=== PATIENT | female | born 1970 | race Two or more races ===

== ENCOUNTER 2025-06-22 10:25 | Emergency (ER) | payer BC, SELFPAY ==
[2025-06-22 10:26] VITALS: BMI 28.3
[2025-06-22 10:38] VITALS: BP 120/74; PULSE 75; RESP 19; TEMP 37.1; O2SAT 96
--- NOTE | 2025-06-22 10:45 | XR_ITS ---
Examination: Shoulder, right, 3 views Technique: Shoulder AP internal rotation, AP external rotation, Y view shoulder, 3 views Exam date and time : June 22, 2025: 1052 hours INDICATIONS: Injury of the shoulder today, shoulder pain. FINDINGS: Anterior subcoracoid shoulder dislocation. No fracture Clavicle intact IMPRESSION: Anterior subcoracoid shoulder dislocation
--- NOTE | 2025-06-22 10:45 | PD.EDFALL ---
ED Fall Injury RME/HPI General Chief Complaint: Fall Stated Complaint: FALL TODAY, 15 STAIRS RIGHT SHOULDER PAIN, HEAD PA Time Seen by Provider: 06/22/25 10:44 Arrival date/time: 06/22/25 10:25 RME / HPI RME / HPI Narrative: See MDM for Dr. Kohli's HPI documentation. Related Data Previous Rx's ?Medication ?Instructions ?Recorded docusate sodium 100 mg capsule 100 mg PO BID #40 caps 03/15/22 hydrocodone 5 mg-acetaminophen 325 1 tab PO Q6HR PRN pain (scale 03/15/22 mg tablet score 7-10) #20 tabs acetaminophen 300 mg-codeine 30 mg 2 tab PO Q8H PRN pain #20 tabs 06/22/25 tablet ibuprofen 600 mg tablet 600 mg PO TID PRN fever or pain 06/22/25 #30 tabs Allergies Allergy/AdvReac Type Severity Reaction Status Date / Time No Known Allergies Allergy Verified 06/22/25 10:29 Review of Systems Review of Systems Systems Reviewed: All systems reviewed, normal except as documented Past Medical History Past Medical History NEUROLOGIC: Negative Neurological Disorders CARDIAC: Negative Cardiac Disorders GASTROINTESTINAL: Negative Gastrointestinal Disorders MUSCULOSKELETAL: Negative Musculoskeletal Disorders HEMATOLOGIC: Negative Blood Disorders Family History FAMILY HISTORY: Positive Family Cardiac Disorders Surgical History SURGICAL: Positive Tubal Ligation and Section Social History SMOKING STATUS: Never smoker SECOND HAND EXPOSURE: No SUBSTANCE USE: does not use 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 ED Exam Narrative Physical exam: See [facility] for Dr. Kohli's physical exam documentation. Course Quality Measures none Orders Category Date Time Status Miscellaneous Nursing Order NOW Care 06/22/25 11:19 Completed Saline [Insert IV] NOW Care 06/22/25 10:[address] cervical spine wo con Stat Exams 06/22/25 11:[address] chest abdomen pelvis wo Stat Exams 06/22/25 11:[address] head/brain wo con Stat Exams 06/22/25 11:58 Completed XR shoulder RT min 2V Stat Exams 06/22/25 10:45 Completed XR shoulder RT min 2V Stat Exams 06/22/25 11:58 Completed Alcohol, Blood Medical Stat Lab 06/22/25 10:54 Completed Bilirubin,Direct Stat Lab 06/22/25 10:54 Completed CBC Stat Lab 06/22/25 10:54 Completed CK [Creatine Kinase] Stat Lab 06/22/25 10:54 Completed CMP [Comprehensive Metabolic Panel] Stat Lab 06/22/25 10:54 Completed Magnesium Stat Lab 06/22/25 10:54 Completed PT [Prothrombin Time with INR] Stat Lab 06/22/25 10:54 Completed PTT [Partial Thromboplastin Time] Stat Lab 06/22/25 10:54 Completed Ketorolac Inj [Toradol Inj] Med 06/22/25 10:45 Discontinued 30 mg IVP X1 ONE Midazolam Inj [Versed Inj] Med 06/22/25 11:19 Discontinued 6 mg IVP X1 ONE Ondansetron Inj [Zofran Inj] Med 06/22/25 10:45 Discontinued 4 mg IVP X1 ONE Ringers Lactated 1000 ml [Lactated Ringers] 1,000 ml Med 06/22/25 10:45 Discontinued IV 1,000 mls/hr fentaNYL INJ [Sublimaze Inj] Med 06/22/25 11:19 Discontinued 100 mcg IVP X1 ONE Vital Signs Vital signs: Vital Signs Temperature 98.7 F 06/22/25 10:38 Pulse Rate 75 06/22/25 10:38 Respiratory Rate 19 06/22/25 10:38 Blood Pressure 120/74 06/22/25 10:38 Pulse Oximetry (%) 96 06/22/25 10:38 Oxygen Delivery Method Room Air 06/22/25 10:38 Pulse ox is 96% on room air which is adequate. PROCEDURES: Orthopedic Joint Reduction Joint #1: Time Out Performed: Yes Side: Right Joint Reduction Location: shoulder Analgesia: procedural sedation Shoulder Technique Used (if applicable): traction/counter-traction Post-reduction neuro exam: intact Post-reduction vascular: intact Post Reduction X-Ray Obtained: Yes Post Reduction X-Ray Results: reduced Splint Applied: Yes Patient Tolerated Procedure: well and no complications Procedural Sedation Indication: fracture/dislocation reduction ASA: 2 Preparation: ekg monitor tech applied, pulse oximeter, capnometry used and supplemental O2 applied Fentanyl: IV Fentanyl dose (mcg): 99 Midazolam: IV Midazolam dose (mg): 6 Patient Tolerated Procedure: well and no complications Complications: none Additional Comments: Fentanyl 100mcg Fall MDM Narrative MDM Narrative:: This section includes all my notes and documentations, including HPI, PE, and ED course. Ángel Kohli MD HPI: 54-year-old female here with severe right shoulder pain after falling down a flight of stairs just [employer]. Patient reports hitting her head multiple times, no LOC. Son reports he heard the fall and went to her right away. Patient was alert and awake. She was on her right side. ROS: All negative except as documented in HPI. Physical Exam: General:? Alert and oriented.? In severe pain. Eyes:? Conjunctivae and lids clear.? EOMI.? PERRL. ENT:? No signs of head trauma. Neck:? Supple.? No tenderness. Heart:? RRR. Lungs:? No respiratory distress.? Good air movement.? No rhonchi, wheezing, rales.? Chest:? No tenderness. Abdomen:? Soft and nontender.? Normal bowel sounds.? No distension.? No rebound or guarding.? Back:? No tenderness.? Skin:? Warm and dry.? Neuro:? Alert and oriented X 3.? Cranial Nerves II-XII grossly intact.? No peripheral motor deficits. Musculoskeletal: Remarkable for right shoulder tenderness with deformity. All other major joints and bones are not tender with no limited ROM. I reviewed all diagnostic test results: My review of the shoulder x-ray report is anterior dislocation. My review of the shoulder x-ray post reduction report is: Reduced anterior right glenohumeral dislocation. My review of the cervical spine CT report is: No acute cervical fracture. My review of the chest/abdomen/pelvis CT report is: No acute findings. My review of the head CT report is: No acute findings. Blood tests are unremarkable. At this point, diagnoses include: Dislocation of right shoulder joint Treatment here included: Shoulder reduction under moderate sedation (see procedure notes) IVF Toradol 30 mg IV Zofran 4 mg IV Fentanyl 100 mcg IV Versed 6 mg IV Significant improvement after reduction. Recommended more outpatient care. Based on my best medical judgment, made decision no further evaluation or treatment indicated at this time. Patient understands and agrees to the discharge instructions customized and printed, see below. Instrucciones de mavis del Dr. Kohli: 1. Tras edgar evaluaci?n exhaustiva, se confirm? que sufri? edgar luxaci?n del hombro derecho. Logramos recolocar mcfadden hombro derecho con ?xito. No presenta otras lesiones graves, lon traumatismo craneoencef?renard, fractura de osvaldo, fractura de columna vertebral, otras fracturas o lesiones de ?rganos internos. 2. Use el cabestrillo en el brazo derecho hasta que el m?dico que lo atiende le indique lo contrario. Aplique hielo patricia 20 minutos cada 2-3 horas hoy y ma?mally. 3. Silverado ibuprofeno de 600 mg cada 6-8 horas hoy y ma?mally para reducir la inflamaci?n, y luego seg?n sea necesario. Silverado Tylenol con code?na para el dolor intenso. 4. Consulte con un m?dico particular el 2025 para edgar revisi?n. Solicite edgar derivaci?n a un cirujano ortop?dico. Pida ayuda hasta que se recupere por completo. 5. Busque atenci?n m?dica de inmediato si presenta dolor insoportable, si no puede senior loss control specialist los dedos, si los dedos se ponen fr?os y azules, o ante cualquier otra inquietud. Discharge instructions from Dr. Kohli: 1. After extensive evaluation, you dislocated right shoulder. And we successfully put your right shoulder back in place. There is no other very serious injury.? Such as brain injury or broken neck or broken back or other broken bone or internal organ injury. 2. Wear right arm sling until cleared by a doctor taking care of you. Apply ice for 20 minutes every 2-3 hours today and tomorrow. 3. Ibuprofen 600 mg every 6-8 hours today and tomorrow to decrease inflammation then as needed. Tylenol with codeine for severe pain. 4. See a private doctor on 06/24/2025 for recheck. Ask for referral to see orthopedic surgeon. Ask for help until you are completely better. 5. Seek immediate medical care with intolerable pain, if you can't move your fingers, your fingers turn cold and blue, or with any concerns. Ángel Kohli MD Patient data External records reviewed:: [facility] previous records Clinical information provided by:: none Social determinants that could affect healthcare access:: none Patient has the following chronic illnesses:: No chronic medical hx How is presenting disease/condition affected by chronic disease/condition?: no chronic disease Evaluation data The following diagnostics were reviewed and interpreted by me:: lab results and radiology exam(s) Lab and/or radiology exams considered but not ordered:: None Interpretation Summary: I reviewed all diagnostic test results: My review of the shoulder x-ray report is anterior dislocation. My review of the shoulder x-ray post reduction report is: Reduced anterior right glenohumeral dislocation. My review of the cervical spine CT report is: No acute cervical fracture. My review of the chest/abdomen/pelvis CT report is: No acute findings. My review of the head CT report is: No acute findings. Blood tests are unremarkable. Medications / Prescriptions Medications or Prescriptions considered but not ordered:: none Medication administrations:: Medication Administration History Discontinued Medications Fentanyl Citrate (Fentanyl Cit Inj 50 Mcg/Ml Amp 2ml) 100 mcg IVP X1 ONE Stop: 06/22/25 11:20 Last Admin: 06/22/25 11:52 Dose: 100 mcg Documented By: NAM Lactated Ringer's (Lactated Ringers) 1,000 mls @ 1,000 mls/hr IV .Q1H ONE Stop: 06/22/25 11:44 Last Infusion: 06/22/25 12:12 Dose: Infused Documented By: Admin: 06/22/25 10:53 Dose: 1,000 mls/hr Documented By: NEAL Ketorolac Tromethamine (Ketorolac Inj 30 Mg/Ml Vial) 30 mg IVP X1 ONE Stop: 06/22/25 10:46 Last Admin: 06/22/25 10:50 Dose: 30 mg Documented By: NEAL Midazolam HCl (Midazolam Inj 1 Mg/Ml Vial 2 Ml) 6 mg IVP X1 ONE Stop: 06/22/25 11:20 Last Admin: 06/22/25 11:53 Dose: 6 mg Documented By: NAM Ondansetron HCl (Ondansetron Inj 2 Mg/Ml Inj 2 Ml) 4 mg IVP X1 ONE; Protocol Stop: 06/22/25 10:46 Last Admin: 06/22/25 10:50 Dose: 4 mg Documented By: NEAL Treatment here included: Shoulder reduction under moderate sedation (see procedure notes) IVF Toradol 30 mg IV Zofran 4 mg IV Fentanyl 100 mcg IV Versed 6 mg IV Consultations Consultation(s) initiated? (list below): No Diagnosis Fall Differential Diagnosis: syncope, dislocation of shoulder region, compression fracture, concussion with loss of consciousness and concussion without loss of consciousness Most likely diagnosis given after review of the tests above:: At this point, diagnoses include: Dislocation of right shoulder joint Admission Indicated Admission indicated?: not indicated Explain why admission is indicated or not indicated:: With significant improvement and no condition needing emergent intervention, there was no indication for admission. Admission Request Was there a request for admission?: No Disposition Plan Disposition Plan: Discharge Discharge Attestation Discharge Attestation: The patient and all family members were given an opportunity to ask questions and understood the discharge instructions. Discharge instructions specifically effects, indications for sooner follow up or return to the emergency department, and the expected course of current diagnosis. Patient condition: Stable Discharge Plan Plan Patient Disposition: HOME (Self Care) Prescriptions/Referrals Prescriptions/Med Rec: New acetaminophen-codeine 300-30 mg tablet 2 tab PO Q8H MDD 6 PRN (Reason: pain) Qty: 20 0RF ibuprofen 600 mg tablet 600 mg PO TID PRN (Reason: fever or pain) Qty: 30 0RF No Action docusate sodium 100 mg Capsule 100 mg PO BID Qty: 40 0RF hydrocodone-acetaminophen 5-325 mg Tablet 1 tab PO Q6HR MDD 4 PRN (Reason: pain (scale score 7-10)) Qty: 20 0RF Referrals: Jaren Tracy MD [Primary Care Provider, Family Practice] - In 1 week Problem List Clinical Impression: Dislocation of right shoulder joint, Scalp hematoma Patient/Caregiver Discharge Instructions Discharge Activity: activity as tolerated Education Materials: ED Dislocation: Shoulder (Reduced), ED Head Injury (Adult) Additional Instructions: Instrucciones de mavis del Dr. Kohli: 1. Tras edgar evaluaci?n exhaustiva, se confirm? que sufri? edgar luxaci?n del hombro derecho. Logramos recolocar mcfadden hombro derecho con ?xito. No presenta otras lesiones graves, lon traumatismo craneoencef?renard, fractura de osvaldo, fractura de columna vertebral, otras fracturas o lesiones de ?rganos internos. 2. Use el cabestrillo en el brazo derecho hasta que el m?dico que lo atiende le indique lo contrario. Aplique hielo patricia 20 minutos cada 2-3 horas hoy y ma?mally. 3. Silverado ibuprofeno de 600 mg cada 6-8 horas hoy y ma?mally para reducir la inflamaci?n, y luego seg?n sea necesario. Silverado Tylenol con code?na para el dolor intenso. 4. Consulte con un m?dico particular el 2 2025 para edgar revisi?n. Solicite edgar derivaci?n a un cirujano ortop?dico. Pida ayuda hasta que se recupere por completo. 5. Busque atenci?n m?dica de inmediato si presenta dolor insoportable, si no puede senior loss control specialist los dedos, si los dedos se ponen fr?os y azules, o ante cualquier otra inquietud. Discharge instructions from Dr. Kohli: 1. After extensive evaluation, you dislocated right shoulder. And we successfully put your right shoulder back in place. There is no other very serious injury.? Such as brain injury or broken neck or broken back or other broken bone or internal organ injury. 2. Wear right arm sling until cleared by a doctor taking care of you. Apply ice for 20 minutes every 2-3 hours today and tomorrow. 3. Ibuprofen 600 mg every 6-8 hours today and tomorrow to decrease inflammation then as needed. Tylenol with codeine for severe pain. 4. See a private doctor on 06/24/2025 for recheck. Ask for referral to see orthopedic surgeon. Ask for help until you are completely better. 5. Seek immediate medical care with intolerable pain, if you can't move your fingers, your fingers turn cold and blue, or with any concerns. Print Language: Sinhala Stand Alone Forms: [employer] Info., Patient Portal Info Letter
[2025-06-22] MEDS: ONDANSETRON INJ 2 MG/ML INJ 2 ML 4 MG IVP (10:50)
[2025-06-22] MEDS: KETOROLAC INJ 30 MG/ML VIAL IVP (10:50)
[2025-06-22] MEDS: RINGERS LACTATED 1000 ML 1,000 ML IV (10:53)
[2025-06-22 11:25] LABS: Basophils # (Auto) 0.0 Thou/mm3 (0.0-0.2); Basophils % (Auto) 0 % (0-2.5); Eosinophils # (Auto) 0.2 Thou/mm3 (0.0-0.5); Eosinophils % (Auto) 2 % (0-10); Hematocrit 37.9 % (36.0-46.0); Hemoglobin 12.6 g/dL (12.0-16.0); Immature Granulocytes Auto 0.02 Thou/mm3 (0.00-0.00); Lymphocytes # (Auto) 4.1 Thou/mm3 (1.0-4.8); Lymphocytes % (Auto) 45 % (10-50); Mean Corpuscular HGB Conc 33.2 g/dl (31.0-37.0); Mean Corpuscular Hemoglobin 29.2 pg (25.0-35.0); Mean Corpuscular Volume 88 fL (80-100); Monocytes # (Auto) 0.6 Thou/mm3 (0.0-0.8); Monocytes % (Auto) 7 % (0-12); Neutrophils # (Auto) 4.1 Thou/mm3 (1.8-7.7); Neutrophils % (Auto) 46 % (37-80); Nucleated Red Blood Cell # 0.00 Thou/mm3 (0.00-0.00); Nucleated Red Blood Cell % 0 /100 WBC (0); Platelet Count 414 Thou/mm3 (140-440); RDW Standard Deviation 40.7 fL (36.4-46.3); Red Blood Count 4.32 Miln/mm3 (4.00-5.20); White Blood Count 9.1 Thou/mm3 (3.6-11.0)
[2025-06-22 11:49] LABS: INR 1.0 (0.9-1.3); Partial Thromboplastin Time 25.1 Seconds (22.0-36.0); Prothrombin Time 10.4 Seconds (9.0-12.2)
[2025-06-22] MEDS: fentaNYL CIT INJ 50 mCg/ML AMP 2ML 100 MCG IVP (11:52)
[2025-06-22] MEDS: MIDAZOLAM INJ 1 MG/ML VIAL 2 ML 6 MG IVP (11:53)
--- NOTE | 2025-06-22 11:58 | XR_ITS ---
Examination: CT chest, without intravenous contrast. CT abdomen, without intravenous contrast. CT pelvis, without intravenous contrast. 2-D sagittal and coronal reconstructions. 3-D reconstructions. Date and time of exam: June 22, 2025, 1247 hours INDICATIONS: Patient fell today with injury to the chest and abdomen, chest pain abdomen pain CTDI vol (mgy) 16.5 DLP (MGycm) 1248 Technique: Multiple CT images, 3.0 mm slice thickness, obtained chest, abdomen, pelvis, with the high-resolution 64 slice scanner.. Sagittal and coronal 2-D reconstructions are obtained. 3-D reconstructions Low dose protocols were performed. One or more of the following dose reduction techniques were used; automated exposure control, adjustment of the mA and/or KV according to patient size, use of iterative reconstruction technique. Findings: Thoracic aorta pulmonary arteries appear intact on this noncontrast study Mild vascular congestion. No pneumothorax or hemothorax The manubrium and the body the sternum intact No thoracic or lumbar or sacral fracture Ribs intact Collapsed breast implants No liver splenic or renal laceration, no perinephric stranding Tiny fat-containing umbilical hernia Abdominal aorta intact No free blood in the abdomen Negative for pneumoperitoneum No pericecal inflammatory change Urinary bladder intact Bones of the pelvis hips intact IMPRESSION: Thoracic aorta pulmonary arteries intact No pneumothorax or hemothorax No abdominal parenchymal laceration Abdominal aorta intact No free bed in the abdomen or pelvis
--- NOTE | 2025-06-22 11:58 | XR_ITS ---
Study: Right shoulder post reduction. INDICATION: Post reduction image. FINDINGS: An internally rotated image and a scapular Y image demonstrate reduction of the anterior dislocation of the glenohumeral joint. In the absence of an externally rotated study, the entire humerus head cannot be assessed. IMPRESSION: Reduced anterior right glenohumeral dislocation.
--- NOTE | 2025-06-22 11:58 | XR_ITS ---
Examination: CT cervical spine without contrast 2-D sagittal reconstructions 2-D coronal reconstructions 3-D reconstructions. Exam date and time: June 22, 2025, 12:30 p.m. INDICATION: Patient fell today with injury to the neck, neck pain CTDI:vol (mGy) 20.4 DLP: (mGycm) 430 Technique: Multiple 2 mm axial sections of the cervical spine have been obtained. The coronal and sagittal reconstructions have been obtained. 3-D reconstructions have been obtained. Low dose protocols were performed. One or more of the following dose reduction techniques were used; automated exposure control, adjustment of the mA and/or KV according to patient size, use of iterative reconstruction technique. Findings: Axial sections demonstrate intact base of the skull. C1 exhibit satisfactory relationship to the odontoid. No acute cervical vertebral body fracture seen. Alignment posterior spinous processes satisfactory. Impression: No acute cervical fracture.
--- NOTE | 2025-06-22 11:58 | XR_ITS ---
Study: Head CT. INDICATION: Pain to the back of the head following a fall this day. TECHNIQUE: 5 mm slice thickness without contrast. Sagittal coronal reformats. 3D surface reconstructions and skull presentation. Radiation dose 1275 mGy centimeters with dose reduction technique. 317 images at 1230 hours 22 June 2025. FINDINGS: The lateral ventricles are normal in size and contour. There is no midline shift, intracranial bleed or mass. Cortical structures are not edematous. The white-parsons junctions are well seen. There is no significant intracranial calcification. No focal lesion is noted in the brainstem or cerebellum. The scalp, skull and mastoid air cells are normal. A short air-fluid level is visible in the right maxillary sinus. A posterior left para median hematoma is noted. The sella turcica and its contents are normal. IMPRESSION: 1. No acute intracranial abnormality. 2. Acute right maxillary sinusitis. 3. Left posterior scalp hematoma.
[2025-06-22 12:02] LABS: Alanine Aminotransferase < 7 U/L (10-49); Albumin, Serum 4.8 gm/dL (3.5-5.0); Albumin/Globulin Ratio 1.8 (1.2-2.2); Alcohol, Blood Medical < 10.0 mg/dL (0-10.0); Alkaline Phosphatase 78 U/L (46-116); Anion Gap 11 (7-16); Aspartate Amino Transferase 18 U/L (0-34); BUN/Creatinine Ratio 17 Ratio (12-20); Bilirubin,Direct 0.1 mg/dL (0.0-0.3); Bilirubin,Total 0.5 mg/dL (0.3-1.2); Blood Urea Nitrogen 10 mg/dL (9-23); Calcium 9.7 mg/dL (8.3-10.6); Calcium (Corrected) 9.7 mg/dL (8.5-10.1); Carbon Dioxide 25.2 mMol/L (20.0-31.0); Chloride 107 mMol/L (98-107); Creatine Kinase 49 U/L (34-171); Creatinine (Component) 0.6 mg/dL (0.6-1.3); Estimated Creatinine Clearance 99.9 mL/min (>60); Globulin 2.6 gm/dL (2.3-3.5); Glucose 120 mg/dL (74-106); Magnesium 1.9 mg/dL (1.6-2.6); Osmolality,Calculated 284 (275-295); Potassium 3.6 mMol/L (3.4-5.1); Sodium 143 mMol/L (136-145); Total Protein 7.4 gm/dL (5.7-8.2); eGFR > 60 See Note
[2025-06-22 12:03] VITALS: BP 119/80; PULSE 98; RESP 18; TEMP 36.8; O2SAT 93
[2025-06-22 12:16] VITALS: BP 123/81; PULSE 94; RESP 18; TEMP 36.7; O2SAT 94
[2025-06-22 12:37] VITALS: BP 122/78; PULSE 88; RESP 17; TEMP 36.7; O2SAT 94
[2025-06-22 14:13] VITALS: BP 131/79; PULSE 89; RESP 16; TEMP 36.7; O2SAT 94
== END 2025-06-22 15:11 | disposition home or self-care (01) ==
PROVIDERS: Emergency Provider Emergency Medicine; PCP Family Medicine
DX: S00.03XA Contusion of scalp, initial encounter (principal); S43.014A Anterior dislocation of right humerus, initial encounter; W10.9XXA Fall (on) (from) unspecified stairs and steps, initial encounter
CPT/HCPCS: 23650; 36415; 70450; 71250; 72125; 73030; 74176; 80053; 80307; 80320; 81001; 82248; 82550; 83735; 85025; 85610; 85730; 96361; 96374; 96375; 99284; J1885; J2250; J2405; J3010; J7120; G0480